=== PATIENT | female | born 1990 | race African-American/Black ===

== ENCOUNTER 2016-09-05 06:34 | Emergency (ER) | payer MEDICAID ==
[~2016-09-05] VITALS: Ht 157.5 cm; Wt 86.2 kg
[~2016-09-05 06:34] MED LIST: CEPHALEXIN500 MG ORAL; NAPROSYN500 M1 ORAL; NITROFURANTOIN100 M2 ORAL; NKM; TYLENOL EXTRA500 MG ORAL; ZOFRAN8 MG ORAL
[2016-09-05] MEDS ORDERED: NKM (06:57)
[2016-09-05] MEDS ORDERED: NS 110ml ONE (07:14)
[2016-09-05] MEDS ORDERED: Famotidine 20 MG/ 2ML VIAL IVP ONE (07:30)
[2016-09-05 07:49] LABS: APPEARANCE,URINE SLIGHTLY CLOUDY; KETONES,URINE NEGATIVE (NEGATIVE); LEUKOCYTE ESTERASE ,URINE 3+ (NEGATIVE); NITRITE,URINE POSITIVE (NEGATIVE); PH,URINE 6 (4.5-8.0); PROTEIN,URINE NEGATIVE (NEGATIVE); UROBILINOGEN,URINE NORMAL MG/DL (0.0-1.0)
--- NOTE | 2016-09-05 07:56 | Emergency Room Report ---
History of Present Illness General Chief Complaint: Pain Source: Patient Present Illness HPI Patient is a 26-year-old female presented after increased right upper abdomen pain. The pain was constant and did not radiate. Patient denied any vomiting or bloody stools reported having sharp pain to the right upper abdomen which I was not changed by food. She reports having alcohol yesterday. She denies any fever. She denied hematuria. She states she is not . She's not had any abdominal surgeries in the past Allergies: Coded Allergies: No Known Allergies (Unverified , 08/27/13) Patient History Past Medical History: see triage record Last Menstrual Period: 09/01/16 Now: No : 4 Para: 1 Reviewed Nursing Documentation: PMH: Agreed, PSxH: Agreed Nursing Documentation-PMH Past Medical History: No Stated History Review of Systems All Other Systems: negative except mentioned in HPI Physical Exam Vital Signs Date Time Temp Pulse Resp B/P Pulse Ox O2 Delivery O2 Flow Rate FiO2 09/05/16 06:53 98.4 94 14 117/77 98 Room Air Sp02 EP Interpretation: reviewed, normal General Appearance: normal inspection, well appearing, no apparent distress, alert, GCS 15 Head: atraumatic ENT: normal ENT inspection, hearing grossly normal, normal voice Neck: normal inspection, full range of motion, supple, no bony tend Respiratory: normal inspection, lungs clear, normal breath sounds, no respiratory distress, no retraction, no wheezing Cardiovascular #1: regular rate, rhythm, no edema Gastrointestinal: normal inspection, normal bowel sounds, non tender, soft, no guarding, no hernia, tenderness - right upper abdomen Genitourinary: no CVA tenderness Musculoskeletal: normal inspection, back normal, normal range of motion Neurologic: normal inspection, alert, responsive, speech normal Psychiatric: normal inspection, judgement/insight normal, mood/affect normal Skin: normal inspection, normal color, no rash Medical Decision Making Diagnostic Impression: Primary Impression: Urinary tract infection ER Course Patient is a 26-year-old female who presented for abdominal pain.Patient presented for abdominal pain. Differential diagnoses included ischemic bowel, appendicitis, perforated viscus, abdominal aortic aneurysm, inferior myocardial infarction, viral gastroenteritis Because of complexity of patient's case laboratory testing and imaging studies were ordered.The patient was noted to have normal white blood count. Urinalysis showed evidence of infection. The patient was given IV antibiotics. Patient given pain medication.The patient is advised to follow up with primary care doctor in 1-2 days. Patient is advised to return if any worsening condition or if any changes in status that are concerning. Labs Test 09/05/16 07:20 09/05/16 07:50 Urine Color Yellow Urine Appearance Slightly cloudy Urine pH 6 (4.5-8.0) Urine Specific [place] 1.025 (1.005-1.035) Urine Protein Negative (NEGATIVE) Urine Glucose (UA) Negative (NEGATIVE) Urine Ketones Negative (NEGATIVE) Urine Occult Blood 4+ (NEGATIVE) Urine Nitrite Positive (NEGATIVE) Urine Bilirubin Negative (NEGATIVE) Urine Urobilinogen Normal MG/DL (0.0-1.0) Urine Leukocyte Esterase 3+ (NEGATIVE) Urine RBC 10-15 /HPF (0 - 2) Urine WBC Tntc /HPF (0 - 2) Urine Squamous Epithelial Cells Many /LPF (NONE/OCC) Urine Bacteria Many /HPF (NONE) Urine HCG, Qualitative Negative White Blood Count 8.5 K/UL (4.8-10.8) Red Blood Count 4.23 M/UL (4.20-5.40) Hemoglobin 12.8 G/DL (12.0-16.0) Hematocrit 38.2 % (37.0-47.0) Mean Corpuscular Volume 90 FL (80-99) Mean Corpuscular Hemoglobin 30.2 PG (27.0-31.0) Mean Corpuscular Hemoglobin Concent 33.4 G/DL (32.0-36.0) Red Cell Distribution Width 11.8 % (11.6-14.8) Platelet Count 190 K/UL (150-450) Mean Platelet Volume 9.7 FL (6.5-10.1) Neutrophils (%) (Auto) 69.0 % (45.0-75.0) Lymphocytes (%) (Auto) 21.7 % (20.0-45.0) Monocytes (%) (Auto) 7.1 % (1.0-10.0) Eosinophils (%) (Auto) 1.2 % (0.0-3.0) Basophils (%) (Auto) 1.0 % (0.0-2.0) Sodium Level 137 mEQ/L (135-145) Potassium Level 3.8 mEQ/L (3.4-4.9) Chloride Level 99 mEQ/L (98-107) Carbon Dioxide Level 23 mEQ/L (20-30) Anion Gap 15 (5-15) Blood Urea Nitrogen 11 mg/dL (7-23) Creatinine 0.7 mg/dL (0.5-0.9) Estimat Glomerular Filtration Rate > 60 mL/min (>60) Glucose Level 112 mg/dL (74-106) Calcium Level 8.5 mg/dL (8.6-10.2) Total Bilirubin 0.2 mg/dL (0.0-1.2) Aspartate Amino Transf (AST/SGOT) 16 U/L (5-40) Alanine Aminotransferase (ALT/SGPT) 17 U/L (3-33) Alkaline Phosphatase 57 U/L (35-104) Troponin I < 0.30 ng/mL (<=0.30) Total Protein 6.9 g/dL (6.6-8.7) Albumin 3.6 g/dL (3.5-5.2) Globulin 3.3 g/dL Albumin/Globulin Ratio 1.0 (1.0-2.7) Lipase 22 U/L (< 60) Last Vital Signs Date Time Temp Pulse Resp B/P Pulse Ox O2 Delivery O2 Flow Rate FiO2 09/05/16 06:53 98.4 94 14 117/77 98 Room Air Status: improved Disposition: HOME, SELF-CARE Condition: Stable Scripts Doxycycline Monohydrate* (DOXYCYCLINE MONOHYDRATE*) 100 Mg Capsule 100 MG ORAL Q12H, #14 CAP 0 Refills Prov: Jack Davis 09/05/16 Omeprazole Magnesium (PRILOSEC) 10 Mg Suspdr.pkt 10 MG ORAL DAILY, #30 PACKET Prov: Jack Davis 09/05/16 Cephalexin* (KEFLEX*) 500 Mg Capsule 500 MG ORAL Q6H, #28 CAP 0 Refills Prov: Jack Davis 09/05/16 Referrals: NON PHYSICIAN (PCP) Jack Davis Sep 05, 2016 07:56
[2016-09-05 08:11] LABS: BACTERIA,URINE MANY /HPF; SQUAMOUS EPITHELIAL CELL,UR MANY /LPF (NONE/OCC); WBC,URINE TNTC /HPF (0 - 2)
[2016-09-05] MEDS ORDERED: cefTRIAXone 2 GM in NS 110 ML IVPB ONE (08:15)
[2016-09-05 08:23] LABS: EOSINOPHILS % (AUTO) 1.2 % (0.0-3.0); LYMPHOCYTES % (AUTO) 21.7 % (20.0-45.0); MEAN CORPUSCULAR HEMOGLOBIN 30.2 PG (27.0-31.0); MEAN CORPUSCULAR HGB CONC 33.4 G/DL (32.0-36.0); MEAN CORPUSCULAR VOLUME 90 FL (80-99); MEAN PLATELET VOLUME 9.7 FL (6.5-10.1); MONOCYTES % (AUTO) 7.1 % (1.0-10.0); PLATELET COUNT 190 K/UL (150-450); RED BLOOD COUNT 4.23 M/UL (4.20-5.40); RED CELL DISTRIBUTION WIDTH 11.8 % (11.6-14.8); WHITE BLOOD COUNT 8.5 K/UL (4.8-10.8)
[2016-09-05 08:35] LABS: ALANINE AMINOTRANSFERASE 17 U/L (3-33); ANION GAP 15 (5-15); ASPARTATE AMINO TRANSFERASE 16 U/L (5-40); CALCIUM 8.5 mg/dL (8.6-10.2); CARBON DIOXIDE 23 mEQ/L (20-30); CHLORIDE 99 mEQ/L (98-107); CREATININE 0.7 mg/dL (0.5-0.9); GLOMERULAR FILTRATION RATE > 60 mL/min (>60); HEMOLYSIS 2; LIPASE 22 U/L (< 60); POTASSIUM 3.8 mEQ/L (3.4-4.9); SODIUM 137 mEQ/L (135-145); TOTAL PROTEIN 6.9 g/dL (6.6-8.7)
[2016-09-05 08:37] LABS: TROPONIN I < 0.30 ng/mL (<=0.30)
[2016-09-05] MEDS ORDERED: KEFLEX500 MG ORAL (08:38)
[2016-09-05] MEDS ORDERED: PRILOSEC10 M1 ORAL (08:38)
[2016-09-05] MEDS ORDERED: DOXYCYCLINE MO100 MG ORAL (08:38)
[2016-09-05] MEDS ORDERED: Ketorolac 30mg Inj ONE (09:21)
[2016-09-05] MEDS ORDERED: Ketorolac 30mg Inj IV ONE (09:30)
[2016-09-05 09:57] VITALS: BP 118/60
== END 2016-09-05 09:59 | disposition home or self-care (01) ==
LOC: EMR 07:13
DX: R10.11 Right upper quadrant pain (principal)
CPT/HCPCS: 36415; 80053; 81003; 81025; 83690; 84484; 85025; 87086; 87181; 96361; 96365; 96374; 96375; 99284; J0696; J1885; S0028

== ENCOUNTER 2016-10-11 07:36 | Emergency (ER) | payer MEDICAID ==
[~2016-10-11] VITALS: Ht 157.5 cm; Wt 86.2 kg
[~2016-10-11 07:36] MED LIST changes: +DOXYCYCLINE MO100 MG ORAL; +KEFLEX500 MG ORAL; +PRILOSEC10 M1 ORAL
[2016-10-11 07:50] VITALS: BP 115/76
--- NOTE | 2016-10-11 07:58 | Emergency Room Report ---
History of Present Illness General Chief Complaint: Sore Throat Source: Patient Present Illness HPI Patient presents with 3 days of sore throat. She has pain when she swallows. There has been no change in her voice. She's also been having a mild cough. She had a flu shot earlier this year. She denies any vomiting or diarrhea. Just muscle aches. She exposed to cigarette smoke where she works at a [employer]. She sometimes wakes up a little bit short of breath. Last period was on the and her menses are irregular. She doesn't believe she is . She rates pain in her throat at 10/10, sharp and burning, worse with swallowing. Allergies: Coded Allergies: No Known Allergies (Unverified , 08/27/13) Patient History Past Medical History: see triage record Social History: Reports: smoking - second hand Social History Narrative works at [employer] Last Menstrual Period: 09/10/2016 Reviewed Nursing Documentation: PMH: Agreed, PSxH: Agreed Nursing Documentation-PMH Past Medical History: No Stated History Review of Systems All Other Systems: negative except mentioned in HPI Physical Exam Vital Signs Date Time Temp Pulse Resp B/P Pulse Ox O2 Delivery O2 Flow Rate FiO2 10/11/16 07:43 98.2 85 16 115/76 99 Room Air Sp02 EP Interpretation: reviewed, normal General Appearance: well appearing, no apparent distress, GCS 15, non-toxic Head: normocephalic, atraumatic Eyes: bilateral eye PERRL, bilateral eye normal inspection ENT: hearing grossly normal, normal voice, TMs + canals normal, moist mucus membranes, pharyngeal erythema, tonsillar exudate Neck: full range of motion, supple, no meningismus Respiratory: lungs clear, normal breath sounds, no respiratory distress, speaking full sentences Cardiovascular #1: regular rate, rhythm Cardiovascular #2: 2+ radial (L) Gastrointestinal: normal inspection, non tender, soft, overweight Musculoskeletal: normal inspection, gait/station normal, normal range of motion , no calf tenderness Neurologic: alert, normal gait, grossly normal Psychiatric: mood/affect normal Skin: no rash Medical Decision Making Diagnostic Impression: Primary Impression: Pharyngitis Qualified Codes: J02.9 - Acute pharyngitis, unspecified ER Course Patient with sore throat 3 days. DDx: strep, viral, URI. Exam consistent with strep. Not toxic or PNA. Reports severe pain. Will treat aggressively and begin treatment here. Treat with steroids and antibiotics. Patient stable for outpatient observation and treatment. Last Vital Signs Date Time Temp Pulse Resp B/P Pulse Ox O2 Delivery O2 Flow Rate FiO2 10/11/16 08:11 98.2 85 16 115/76 99 Room Air Status: improved Disposition: HOME, SELF-CARE Condition: Improved Scripts Ibuprofen* (MOTRIN*) 600 Mg Tablet 600 MG ORAL Q6H Y for For Pain, #16 TAB Prov: Enrique Rosales M.D. 10/11/16 Amoxicillin/Potassium Clav 500-125 Tablet* (AUGMENTIN 500-125 TABLET*) 1 Each Tablet 1 TAB ORAL THREE TIMES A DAY, #21 TAB Prov: Enrique Rosales M.D. 10/11/16 Enrique Rosales M.D. Oct 11, 2016 07:58
[2016-10-11] MEDS ORDERED: AUGMENTIN 500-1 EACH ORAL (08:00)
[2016-10-11] MEDS ORDERED: IBUPROFEN600 MG ORAL (08:00)
== END 2016-10-11 08:15 | disposition home or self-care (01) ==
LOC: EMR 08:13
DX: J02.9 Acute pharyngitis, unspecified (principal); Z77.22 Contact with and (suspected) exposure to environmental tobacco smoke (acute) (chronic)
CPT/HCPCS: 99284; J8540

== ENCOUNTER 2017-09-17 00:37 | Emergency (ER) | payer MEDICAID ==
[~2017-09-17] VITALS: Ht 157.5 cm; Wt 97.5 kg
[~2017-09-17 00:37] MED LIST changes: +AUGMENTIN 500-1 EACH ORAL; +IBUPROFEN600 MG ORAL
[2017-09-17] MEDS ORDERED: Ketorolac 30mg Inj IV ONE (01:00)
[2017-09-17 01:15] VITALS: BP 118/60
--- NOTE | 2017-09-17 01:19 | Emergency Room Report ---
History of Present Illness General Chief Complaint: Pain Source: Patient Present Illness HPI 27 YOF with 1 week pain to left forearm Worse after lifting heavy boxes at work No trauma No exercise or weight lifting Sometimes associated with numbness to forearm Never experienced this before Took motrin one time in the last week Allergies: Coded Allergies: No Known Allergies (Unverified , 09/17/17) Patient History Past Medical History: none Past Surgical History: none Pertinent Family History: none Social History: Denies: smoking, alcohol use, drug use Last Menstrual Period: n/a Now: No - iud placed 2012 Immunizations: UTD Reviewed Nursing Documentation: PMH: Agreed, PSxH: Agreed Nursing Documentation-PMH Past Medical History: No Stated History Review of Systems Genitourinary: Reports: dysuria, frequency Physical Exam Vital Signs Date Time Temp Pulse Resp B/P (MAP) Pulse Ox O2 Delivery O2 Flow Rate FiO2 09/17/17 00:47 98.2 81 16 110/57 96 Room Air Sp02 EP Interpretation: reviewed, normal General Appearance: normal inspection, well appearing, no apparent distress, alert, GCS 15, non-toxic Head: normocephalic, atraumatic Eyes: bilateral eye PERRL, bilateral eye EOMI ENT: normal ENT inspection, hearing grossly normal, normal pharynx, no angioedema, normal voice, TMs + canals normal, uvula midline, moist mucus membranes Neck: normal inspection, full range of motion, supple, thyroid normal, no meningismus, no bony tend Respiratory: normal inspection, lungs clear, normal breath sounds, no rhonchi, no respiratory distress, no retraction, no accessory muscle use, no wheezing, speaking full sentences Cardiovascular #1: regular rate, rhythm, no edema, no JVD, normal capillary refill Gastrointestinal: normal inspection, normal bowel sounds, non tender, soft, no mass, no peritonitis, non-distended, no guarding, no hernia, no pulsatile mass Genitourinary: no CVA tenderness Musculoskeletal: normal inspection, back normal, normal range of motion, no calf tenderness, pelvis stable, Robyn's Sign negative, other - left forearm: Soft compartments. No rash or erythema or induration. 2+ distal radius pulse Neurologic: normal inspection, alert, oriented x3, responsive, manager supply III-XII nml as tested, motor strength/tone normal, cerebellar normal, normal gait, speech normal Psychiatric: normal inspection, judgement/insight normal, mood/affect normal, no suicidal/homicidal ideation, no delusions Skin: normal inspection, normal color, no rash Lymphatic: normal inspection, no adenopathy Medical Decision Making Diagnostic Impression: Primary Impression: Forearm pain Qualified Codes: M79.632 - Pain in left forearm Additional Impression: Dysuria ER Course VSS, Afebrile CK normal Likely MSK vs carpal tunnel - advised RICE, NSAIDS, ice Macrobid for endorsed dysuria on ROS ER course: Patient has remained stable during ED stay. Disposition: Patient is to be discharged to home. Prescriptions given are motrin, macrobid Patient is instructed to follow up with their primary care doctor within 5 days. Patient is instructed to follow up with *specialist within 3 days. Strict return precautions discussed with patient such as fever, chills, worsening/severe pain, nausea, vomiting, which may indicate severe illness. Patient verbalizes understanding and agrees with plan. Please note that this Emergency Department Report was dictated using [employer] automatic technology software, occasionally this can lead to erroneous entry secondary to interpretation by the dictation equipment Last Vital Signs Date Time Temp Pulse Resp B/P (MAP) Pulse Ox O2 Delivery O2 Flow Rate FiO2 09/17/17 00:47 98.2 81 16 110/57 96 Room Air Status: improved Disposition: HOME, SELF-CARE Referrals: NOT [facility]EN [facility]/,REFERRING (PCP) MARISEL ROJAS M.D. Sep 17, 2017 01:18
[2017-09-17 01:35] LABS: CREATINE KINASE 159 U/L (26-308)
[2017-09-17] MEDS ORDERED: IBUPROFEN600 MG ORAL (01:40)
[2017-09-17] MEDS ORDERED: NITROFURANTOIN100 M2 ORAL (01:40)
[2017-09-17 01:45] VITALS: BP 118/60
== END 2017-09-17 01:52 | disposition home or self-care (01) ==
LOC: EMR 01:09
DX: M79.632 Pain in left forearm (principal); R30.0 Dysuria
CPT/HCPCS: 36415; 82550; 96374; 99284; J1885

== ENCOUNTER 2017-12-24 21:11 | Emergency (ER) | payer MEDICAID ==
[~2017-12-24] VITALS: Ht 157.5 cm; Wt 96.6 kg
[2017-12-24 21:33] LABS: APPEARANCE,URINE SLIGHTLY CLOUDY; BILIRUBIN, URINE NEGATIVE (NEGATIVE); COLOR,URINE PALE YELLOW; GLUCOSE, URINE (UA) NEGATIVE (NEGATIVE); KETONES,URINE NEGATIVE (NEGATIVE); LEUKOCYTE ESTERASE ,URINE 1+ (NEGATIVE); NITRITE,URINE POSITIVE (NEGATIVE); PH,URINE 5 (4.5-8.0); PROTEIN,URINE NEGATIVE (NEGATIVE); UROBILINOGEN,URINE NORMAL MG/DL (0.0-1.0)
--- NOTE | 2017-12-24 21:34 | Emergency Room Report ---
History of Present Illness General Chief Complaint: Abdominal Pain Source: Patient Present Illness HPI Is a 27-year-old female with no past medical history. She presents with chief complaint of right side pain. Onset for 2 days. No trauma. Worse with movement. Worse with inspiration. Denies any dysuria frequency. Denies any nausea vomiting. Pain is 7 out of 10. No fever or chills. No chest pain. Not on control pill. Allergies: Coded Allergies: No Known Allergies (Unverified , 09/17/17) Patient History Past Medical History: see triage record, old chart reviewed Past Surgical History: none Pertinent Family History: none Social History: Denies: smoking Last Menstrual Period: 11/22/17 Now: No : 4 Para: 1 Immunizations: other Reviewed Nursing Documentation: PMH: Agreed; PSxH: Agreed Nursing Documentation-PMH Past Medical History: No History, Except For Review of Systems Eye: Denies: eye pain, blurred vision ENT: Denies: ear pain, nose congestion, throat swelling Respiratory: Denies: cough, shortness of breath Cardiovascular: Denies: chest pain, palpitations Gastrointestinal: Denies: abdominal pain, diarrhea, nausea, vomiting Musculoskeletal: Reports: muscle pain; Denies: back pain, joint pain Skin: Denies: rash Neurological: Denies: headache, numbness Endocrine: Denies: increased thirst, increased urine Hematologic/Lymphatic: Denies: easy bruising All Other Systems: negative except mentioned in HPI Physical Exam Vital Signs Date Time Temp Pulse Resp B/P (MAP) Pulse Ox O2 Delivery O2 Flow Rate FiO2 12/24/17 21:12 97.9 86 18 110/60 97 Room Air 97.9 vitals normal Sp02 EP Interpretation: reviewed, normal General Appearance: well appearing, no apparent distress, alert Head: normocephalic, atraumatic Eyes: bilateral eye PERRL, bilateral eye EOMI ENT: hearing grossly normal, normal pharynx Neck: full range of motion, supple, no meningismus Respiratory: chest non-tender, lungs clear, normal breath sounds Cardiovascular #1: regular rate, rhythm, no murmur Gastrointestinal: normal bowel sounds, non tender, no mass, no organomegaly, no bruit, non-distended Musculoskeletal: back normal, gait/station normal, normal range of motion, other - Tenderness along the lower right lateral rib and flank area. No rash. Psychiatric: mood/affect normal Skin: warm/dry Medical Decision Making Diagnostic Impression: Primary Impression: Urinary tract infection Qualified Codes: N30.00 - Acute cystitis without hematuria Additional Impression: Qualified Codes: Z3A.01 - Less than 8 weeks gestation of ER Course Patient presents with flank pain and has a UTI. This may be a sending or early pyelonephritis. No CVA tenderness however. She looks well. No evidence of any sepsis. She grew out Escherichia coli is pansensitive in the past. Received a dose of Rocephin here. Beta-hCG is extremely low. This could be early versus ectopic. No bleeding however. My transabdominal ultrasound showed no evidence of IUP at this moment in time. This is because hCG is very low. Last Vital Signs Date Time Temp Pulse Resp B/P (MAP) Pulse Ox O2 Delivery O2 Flow Rate FiO2 12/24/17 21:30 97.9 12/24/17 21:12 86 18 110/60 97 Room Air Status: improved Disposition: HOME, SELF-CARE Condition: Stable Scripts Cephalexin* (KEFLEX*) 500 Mg Capsule 500 MG ORAL TID, #21 CAP Prov: YEISON ANGEL M.D. 12/24/17 Additional Instructions: Follow-up your doctor in 7 days. Return for abdominal pain, fever, bleeding or any concern. Urine is very early. This could still be an ectopic . YEISON ANGEL M.D. December 24, 2017 21:34
[2017-12-24 21:41] VITALS: BP 110/60
[2017-12-24] MEDS ORDERED: cefTRIAXone 1 GM in NS 55 ML IVPB ONE (22:00)
[2017-12-24] MEDS ORDERED: CEPHALEXIN500 MG ORAL (22:36)
== END 2017-12-24 22:45 | disposition home or self-care (01) ==
LOC: EMR 21:26
DX: O23.41 Unspecified infection of urinary tract in pregnancy, first trimester (principal); Z3A.08 8 weeks gestation of pregnancy
CPT/HCPCS: 36415; 81003; 81025; 84702; 87086; 87181; 96360; 96374; 99284; J0696